=== PATIENT | female | born 1940 | race Caucasian/White ===

== ENCOUNTER → 2021-11-28 | Day surgery (SDC) | payer MEDICARE ==
[~2021-11-28] VITALS: Ht 167.6 cm; Wt 67.1 kg
[~2021-11-28] MED LIST: AMARYL2 MG PO; ASPIRIN EC81 MG PO; COZAAR50 MG PO; LIPITOR 10MG TA10 MG PO; METFORMIN HCL500 MG PO; VITAMIN B122500 MCG PO; ZINC30 MG PO; ZOLOFT 25MG TAB25 MG PO; ZYRTEC10 MG PO
== END | disposition home or self-care (01) ==
LOC: FAS 07:45
DX: K63.5 Polyp of colon (principal); K29.50 Unspecified chronic gastritis without bleeding; K21.9 Gastro-esophageal reflux disease without esophagitis; K57.30 Diverticulosis of large intestine without perforation or abscess without bleeding; D50.0 Iron deficiency anemia secondary to blood loss (chronic); I10 Essential (primary) hypertension; E11.9 Type 2 diabetes mellitus without complications; E78.5 Hyperlipidemia, unspecified; F17.210 Nicotine dependence, cigarettes, uncomplicated; Z88.1 Allergy status to other antibiotic agents; Z88.8 Allergy status to other drugs, medicaments and biological substances; Z79.82 Long term (current) use of aspirin; Z79.84 Long term (current) use of oral hypoglycemic drugs; Z79.899 Other long term (current) drug therapy
CPT/HCPCS: J1610; J2250; J2704; J7120